=== PATIENT | female | born 1945 | race Caucasian/White ===

== ENCOUNTER 2022-09-25 13:07 | Emergency (ER) | payer MEDICARE, SELFPAY ==
[2022-09-25 13:08] VITALS: TEMP 36.6; BMI 27.4
[2022-09-25 13:14] VITALS: BP 167/48; PULSE 63; RESP 20; O2SAT 97
[2022-09-25] MEDS: 0.9% Normal Saline 1,000 ML 1000 ML IV ×2 (13:30→14:46)
--- NOTE | 2022-09-25 13:39 | CT_ITS ---
INDICATION: headache, syncope EXAMINATION: CT BRAIN - CT Head or Brain W/O Contrast Injection TECHNIQUE: Multiple axial images were obtained of the head without intravenous contrast. A radiation dose optimization technique was used for this scan. IV Contrast dosage and agent: None. COMPARISON: None. FINDINGS: BRAIN PARENCHYMA: No intra- or extra-axial hemorrhage. No evidence of acute infarct. No intracranial mass or mass effect. Posterior fossa structures are unremarkable. Volume loss with low attenuation of the periventricular white matter typical of chronic small vessel disease. CSF SPACES: Appropriate for age. No hydrocephalus. Basal cisterns are patent. CALVARIUM, SKULL BASE, PARANASAL SINUSES AND MASTOID AIR CELLS: Clear. No discrete lytic or blastic abnormalities. CT/Brain/Head without Contrast IMPRESSION: Volume loss with chronic white matter changes. No acute intracranial findings. Electronically Signed: Luis M Alexander MD at 15:15 EDT ,
--- NOTE | 2022-09-25 13:40 | EKG12_ITS ---
Test Reason : SYNCOPE Blood Pressure : / mmHG Vent. Rate : 052 BPM Atrial Rate : 052 BPM P-R Int : 178 ms QRS Dur : 100 ms QT Int : 478 ms P-R-T Axes : 031 -27 064 degrees QTc Int : 444 ms Sinus bradycardia Minimal voltage criteria for LVH, may be normal variant ( Stow product ) Borderline ECG Confirmed by SRI YAN, OSMIN ([id number]), editor & co founder BREN العراقي ([id number]) on 09/26/2022 11:38:05 AM Referred By: Confirmed By:OSMIN FIERRO MD
--- NOTE | 2022-09-25 13:41 | EX.ED.DYSGE1 ---
HPI History of Present Illness Chief Complaint: Nausea/Vomiting Narrative Narrative: 76-year-old female presents via EMS after syncopal episode. She was outside at the [facility], and had a syncopal episode. The ceremony had completed, and she told her daughter that she felt like she was going to pass out. She sat down in front of the fans, and her daughter states that she had an unusual syncopal episode in the sense that her eyes were open and that she was drooling a bit. There was no generalized shaking, however EMS was called and they state that they laid her down and started doing things. Patient now is awake and feels tired she complains of pain around her left eye/headache but denies any fall. Of note, she was in [place] last week and tested positive for COVID but was asymptomatic. She came home and tested negative here. This may have been a false positive while she was in [place]. She denies any prodromal chest pain or shortness of breath but did have a feeling that she was going to pass out,'s feeling faint. PFSH [facility] Medical History Cataract Diabetes Allergy/AdvReac Type Severity Reaction Status Date / Time No Known Allergies Allergy Verified 09/25/22 13:13 Family History Father Heart disease Diabetes Surgical History H/O: hysterectomy Social History Smoking Status: Never smoker ROS ROS ED ROS Narrative Constitutional: No fever, no chills. HEENT: No sore throat. No neck pain. No loss of vision. No rhinorrhea. Cardiovascular: No chest pain. No palpitations. No pedal edema. Respiratory: No cough, no shortness of breath. Abdominal: No abdominal pain. No nausea. No vomiting. Genitourinary: No dysuria. No hematuria. Musculoskeletal: No myalgias. No arthralgias. Neurologic: No headaches. No dizziness. Positive lightheadedness. Positive brief syncopal episode. Skin: No rash. No change in color. Psychiatric: No depression. No anxiety. EXAM Physical Exam Narrative Exam Narrative: Afebrile. Vital signs noted. HEENT: Normocephalic. Atraumatic. PERRL, EOMI. Neck soft and supple. No point tenderness or step off. Cardiovascular: Regular rate and rhythm. No murmurs, rubs, or gallops appreciated. Respiratory: No tachypnea. Lungs clear to auscultation bilaterally. Gastrointestinal: Abdomen soft, nontender, with normoactive bowel sounds. No rebound or guarding. Neurological: Awake. Alert. Nonfocal, nonlateralizing. Skin: No rash. Normal color. No pallor. Musculoskeletal: No pedal edema. Full range of motion extremities. Const Vital Signs: 09/25/22 13:08 09/25/22 13:14 09/25/22 15:27 Temperature 97.9 F Temperature Source Oral Pulse Rate 63 Pulse Rate [Lying] 70 Pulse Rate [Sitting (for 1 minute prior to obtaining)] 63 Pulse Rate [Standing (for 1 minute prior to obtaining)] 67 Respiratory Rate 20 H Blood Pressure 167/48 H Blood Pressure [Lying] 159/62 H Blood Pressure [Sitting (for 1 minute prior to obtaining)] 170/65 H Blood Pressure [Standing (for 1 minute prior to obtaining)] 163/70 H Blood Pressure Mean 87 Blood Pressure Mean [Lying] 94 Blood Pressure Mean [Sitting (for 1 minute prior to obtaining)] 100 Blood Pressure Mean [Standing (for 1 minute prior to obtaining)] 101 Pulse Ox 97 Oxygen Delivery Method Room Air MDM MDM MDM Narrative Medical decision making narrative: High on the differential is vasovagal syncope/heat stroke. Patient is already receiving IV fluids but she will be additionally bolused normal saline 1 L. Comprehensive work-up was pursued. Does not really sound like she had a seizure. In regards to her left eye pain/headache I will obtain a CT of the brain, but not for the syncopal episode in itself. Orthostatics will also be obtained along with baseline laboratories including CBC and CMP with urinalysis to check for dehydration/positive ketones in the urine. EKG will be obtained to look for dysrhythmia. Given her age, I did add a troponin. EKG was obtained and interpreted by myself independently which demonstrates sinus bradycardia at 52 bpm without ectopy or acute ST changes. No STEMI. She has normal QTc of 444. I reviewed her laboratory work and she has a normal white count of 7.4, hemoglobin normal at 13.5, platelet count low at 111 which I think is nonspecific. In review of her electrolytes she has a low potassium of 3.2 which was replaced orally with 40 mEq. Normal BUN of 13 normal creatinine of 0.93. High-sensitivity troponin is 5. Orthostatics were obtained and reviewed and are negative. CT of the brain was obtained and radiology report was reviewed, there is no acute process. She has chronic white matter changes. Urinalysis is negative for ketones and negative for infection. I do not feel antibiotics are indicated. At this point in time, she was able to stand for her orthostatics. She feels markedly improved after IV fluids. I do feel that she probably had more of a heat exhaustion/syncope. I feel she can be discharged safely home to follow-up with her primary care physician. She has an appointment next week on the . She was told to call and see if they would like to see her any sooner or if she should just keep her scheduled appointment. Return instructions to the emergency department were reviewed. Patient and her family are agreeable to the plan. Disposition is discharged home in stable condition. History & Record Review Discussion w/independent historian: Patient and Family Additional record(s) reviewed:: No prior records Lab Data Attestation: I reviewed the patient's lab results. Labs: Laboratory Results - last 24 hr 09/25/22 09/25/22 09/25/22 14:00 14:00 15:14 WBC 7.4 RBC 4.67 Hgb 13.5 Hct 42.4 MCV 90.8 MCH 28.9 MCHC 31.8 L RDW Std Deviation 44.6 H RDW Coeff of Shreya 13.4 Plt Count 111 L MPV 11.4 Immature Gran % (Auto) 0.400 Neut % (Auto) 65.3 Lymph % (Auto) 23.1 [place] % (Auto) 6.9 Eos % (Auto) 3.6 Baso % (Auto) 0.7 Absolute Neuts (auto) 4.9 Absolute Lymphs (auto) 1.72 Nucleated RBC % 0 Sodium 141 Potassium 3.2 L Chloride 110 H Carbon Dioxide 22.0 Anion Gap 9 BUN 13 Creatinine 0.93 Estim Creat Clear Calc 45.13 Est GFR (MDRD) Af Amer 76 Est GFR (MDRD) Non-Af 62 BUN/Creatinine Ratio 14.0 Glucose 137 H Calcium 8.5 Total Bilirubin 0.70 AST 73 H ALT 82 H Alkaline Phosphatase 67 Troponin I High Sens 5 Total Protein 6.7 Albumin 2.9 L Globulin 3.8 Albumin/Globulin Ratio 0.8 L Urine Color Yellow Urine Clarity Clear Urine pH 7.0 Ur Specific Maud 1.010 Urine Protein 15 H Urine Glucose (UA) Normal Urine Ketones Negative Urine Occult Blood Negative Urine Nitrite Negative Urine Bilirubin Negative Urine Urobilinogen Normal Ur Leukocyte Esterase 500 H Urine RBC 0 SEEN Urine WBC 0-5 SEEN Ur Squamous Epith Cells 0-5 SEEN Urine Bacteria 0 SEEN Urine Mucus 0 SEEN Radiography Diagnostic Testing: Clinical Impression(s) from Imaging Studies Brain CT 09/25/22 13:39 IMPRESSION: Volume loss with chronic white matter changes. No acute intracranial findings. Electronically Signed: Luis M Alexander MD at 15:15 EDT Reading Location ID and State: [address] [place] [address] Tel , Service support , Discharge Plan Triage Chief Complaint: Nausea/Vomiting ED Provider: Ricky Goldsmith Dx/Rx/DC Orders Clinical Impression: Heat syncope, Hypokalemia, Thrombocytopenia Instructions: Thrombocytopenia, Heat Stress: Warning Signs, ED Hypokalemia, ED Fainting, Uncertain Cause Primary Care Provider: Crystal Harmon Referrals: Óscar Guaman MD [STAFF PHYSICIAN] - Activity Restrictions/Additional Instructions: Drink plenty of fluids today. Follow-up with your primary care physician. You can call them tomorrow and see if you can keep your appointment for the or if they would like to see you any sooner. Disposition Disposition: Home, Self Care
[2022-09-25 14:12] LABS: Absolute Lymphocyte Count 1.72 X10^3/uL (0.83-4.51); Absolute Neutrophil Count 4.9 X10^3/uL (2.0-7.7); Basophil# 0.05 X10^3/uL; Basophil% 0.7 % (0-1); Eosinophil# 0.27 X10^3/uL; Eosinophils% 3.6 % (0-5); Hematocrit 42.4 % (37-47); Hemoglobin 13.5 g/dL (12.0-15.0); Lymphocyte # 1.72 X10^3/ul (0.83-4.51); Lymphocyte % 23.1 % (19-41); Mean Corp Hgb Conc 31.8 g/dL (32-36); Mean Corpuscular Hgb 28.9 pg (27.0-32.0); Mean Corpuscular Volume 90.8 fL (81-99); Mean Platelet Vol. 11.4 fl (6.2-12.0); Monocyte# 0.51 X10^3/uL; Monocyte% 6.9 % (0-10); NRBC Flagged by Analyzer 0 % (0-5); Neutrophil # 4.85 X10^3/uL (2.7-7.7); Neutrophil % 65.3 % (47-70); Platelet Count 111 K/mm3 (150-450); RBC Distribution Width CV 13.4 % (11.6-14.6); RBC Distribution Width SD 44.6 fl (35.1-43.9); Red Blood Count 4.67 M/mm3 (4.2-5.4); White Blood Count 7.4 K/mm3 (4.4-11.0)
[2022-09-25 14:26] LABS: ALB/GLOB Ratio 0.8 RATIO (0.9-2.4); AST(SGOT) 73 U/L (15-37); Alanine Aminotransfer ALT/SGPT 82 U/L (13-56); Albumin, Serum 2.9 g/dL (3.2-5.0); Alkaline Phosphatase 67 U/L (45-117); Anion Gap 9 (5-15); BUN 13 mg/dL (7-18); Calcium,Total 8.5 mg/dL (8.5-10.1); Chloride 110 mmol/L (98-107); Creatinine, Serum 0.93 mg/dL (0.55-1.02); EST Glomerular Filtration Rate 62 mL/min (>60); Est Glom Filt Rate - Afr Amer 76 mL/min (>60); Estimated Creatinine Clearance 45.13 ml/min; Globulin 3.8 g/dL (2.2-4.2); Glucose 137 mg/dL (74-106); Potassium 3.2 mmol/L (3.5-5.1); Protein, Total 6.7 g/dL (6.4-8.2); Sodium Level 141 mmol/L (136-145); Troponin-I HS (w/2H Reflex) 5 pg/mL (3.0-54.0)
[2022-09-25] MEDS: Ondansetron 4 MG/2 ML Vial IV (14:29)
[2022-09-25 15:19] LABS: Bacteria 0 SEEN /hpf (None Seen); Mucous, Urine 0 SEEN /hpf (<or=2+); Red Blood Cells-Urine 0 SEEN /hpf (0-5)
[2022-09-25 15:22] LABS: Color, Urine Yellow (Yellow); Glucose, Dipstick Normal (Normal); Ketone-Dipstick Negative (Negative); Leukocyte Esterase-Dipstick 500 /ul (Negative); Nitrite-Dipstick Negative (Negative); Occult Blood-Urine Negative /ul (Negative); Protein-Dipstick 15 mg/dl (Negative); Urine Bilirubin Dipstick Negative (Negative); Urine Clarity Clear (Clear); Urine Urobilinogen Normal (Normal)
[2022-09-25 15:27] VITALS: BP 159/62; BP 163/70; BP 170/65; PULSE 63; PULSE 67; PULSE 70
[2022-09-25 15:29] LABS: Squamous Epithelial Cells - UA 0-5 SEEN /hpf (5-10); White Blood Cells 0-5 SEEN /hpf (0-5)
[2022-09-25] MEDS: Potassium Chloride Oral Tablet 20 MEQ 40 MEQ PO (15:30)
[2022-09-25 15:32] VITALS: BP 165/63; PULSE 70; O2SAT 95
[2022-09-25 16:06] LABS: Reflex Troponin-HS? (from REC) Y
== END 2022-09-25 15:38 | disposition home or self-care (01) ==
PROVIDERS: Emergency Provider Emergency Medicine; PCP Family Medicine; Visit Provider Emergency Medicine
DX: T67.1XXA Heat syncope, initial encounter (principal); D69.6 Thrombocytopenia, unspecified; E11.9 Type 2 diabetes mellitus without complications; E87.6 Hypokalemia; H57.12 Ocular pain, left eye; R11.2 Nausea with vomiting, unspecified; R51.9 Headache, unspecified
CPT/HCPCS: 70450; 80053; 81001; 84484; 85025; 93005; 96361; 96374; 99285; J7030; A4216; J2405